=== PATIENT | male | born 1985 | race Caucasian/White ===

== ENCOUNTER 2017-03-08 21:09 | Emergency (ER) | payer OTHER ==
[~2017-03-08] VITALS: Ht 170.2 cm; Wt 94.5 kg
[~2017-03-08 21:09] MED LIST: NO HOME MEDICATIONS
[2017-03-08 21:11] VITALS: BP 136/74; TEMP 99.3
[2017-03-08 22:38] VITALS: PULSE 88
== END 2017-03-08 22:39 | disposition home or self-care (01) ==
LOC: COL.ER 21:09
DX: L50.9 Urticaria, unspecified (principal); F17.210 Nicotine dependence, cigarettes, uncomplicated
CPT/HCPCS: J7512

== ENCOUNTER 2021-07-08 12:55 | Emergency (ER) | payer OTHER ==
[~2021-07-08] VITALS: Ht 170.2 cm; Wt 99.1 kg
[2021-07-08 13:25] VITALS: TEMP 98.2
[2021-07-08] MEDS ORDERED: FLEXERIL 1010 MG/TAB PO (16:51)
[2021-07-08 17:05] VITALS: BP 137/84; PULSE 82
== END 2021-07-08 17:09 | disposition home or self-care (01) ==
LOC: COL.ER 12:55
DX: M54.6 Pain in thoracic spine (principal); V09.20XA Pedestrian injured in traffic accident involving unspecified motor vehicles, initial encounter